=== PATIENT | female | born 1995 ===

== ENCOUNTER 2017-09-11 17:27 | Observation (INO) | payer OTHER ==
[~2017-09-11] VITALS: Ht 165.1 cm; Wt 114.4 kg
[2017-09-11] MEDS ORDERED: ZOLOFT 50MG50 MG PO (18:11)
[2017-09-11 18:21] VITALS: BP 108/54; PULSE 60
[2017-09-11 21:05] VITALS: BP 104/56; PULSE 54; TEMP 98.4
[2017-09-12] VITALS (15 sets, daily range): BP systolic 100–130; BP diastolic 44–66; PULSE 53–78; TEMP 98–98.2
== END 2017-09-12 19:30 | disposition home or self-care (01) ==
LOC: SURG 17:27 → SDCO 17:27 → SURG 17:36
DX: N20.1 Calculus of ureter (principal); Z90.49 Acquired absence of other specified parts of digestive tract; F32.9 Major depressive disorder, single episode, unspecified
CPT/HCPCS: G0378; G0379; J1885; J2270; J2704; J3010; J7030